=== PATIENT | female | born 1985 | race American Indian/Alaskan Native ===

== ENCOUNTER 2018-01-24 16:24 | Emergency (ER) | payer OTHER ==
[2018-01-24 16:33] VITALS: BP 128/88
[2018-01-24] MEDS ORDERED: REGLAN IV ONE (16:40)
[2018-01-24] MEDS ORDERED: NACL 0.9% 1000 ML 1,000 ML IV ONE (16:40)
[2018-01-24 16:56] LABS: Bilirubin,Urine NEG (Negative); Blood,Urine NEG (Negative); Color,Urine Yellow (Yellow); Protein,Urine <15 mg/dL mg/dL (Negative); Urobilinogen,Urine < 2.0 mg/dL (<2.0)
[2018-01-24 16:58] LABS: Hematocrit 40.2 % (30.3-42.9); Hemoglobin 13.8 gm/dl (10.1-14.3); Mean Corpuscular HGB Conc 34 % (30-34); Mean Corpuscular Hemoglobin 28 pg (28-32); Mean Corpuscular Volume 81 fl (79-97); Platelet Count 425 K/mm3 (140-440); Red Blood Count 4.99 M/mm3 (3.65-5.03); Red Cell Distribution Width 14.4 % (13.2-15.2)
[2018-01-24 17:19] LABS: BUN/Creatinine Ratio 14; Blood Urea Nitrogen 10 mg/dL (7-17); Hemolysis Index 14
--- NOTE | 2018-01-24 17:20 | Emergency Department Report ---
Vomiting/Diarrhea - HPI Chief Complaint: Nausea/Vomiting/Diarrhea Stated Complaint: VOMITING Time Seen by Provider: 01/24/18 16:35 Duration: 3 Days Severity: mild Nausea/Vomiting Severity: Mild Diarrhea Severity: None Pain Severity: None Other History: This is a 32-year-old female M1 nontoxic, well nourished in appearance, no acute signs of distress presents to the ED with c/o of nausea and vomiting x3 days. Patient stated that she is about 4-5 weeks . Patient stated last menstrual cycle was 12/12/2017. Patient denies any chest pain, shortness of breathe, fever, chills, headache, stiff neck, abdominal pain , back pain. Patient denies any vaginal discharge or vaginal bleeding. Patient denies any allergies or PMH. ED Review of Systems ROS: Stated complaint: VOMITING Other details as noted in HPI Constitutional: denies: chills, fever Eyes: denies: eye pain, eye discharge, vision change ENT: denies: ear pain, throat pain Respiratory: denies: cough, shortness of breath, wheezing Cardiovascular: denies: chest pain, palpitations Endocrine: no symptoms reported Gastrointestinal: nausea, vomiting. denies: abdominal pain, diarrhea Genitourinary: denies: urgency, dysuria, discharge Musculoskeletal: denies: back pain, joint swelling, arthralgia Skin: denies: rash, lesions Neurological: denies: headache, weakness, paresthesias Psychiatric: denies: anxiety, depression Hematological/Lymphatic: denies: easy bleeding, easy bruising ED Past Medical Hx - Past Medical History Previous Medical History?: No - Surgical History Additional Surgical History: - Social History Smoking Status: Never Smoker Substance Use Type: None - Medications Home Medications: Home Medications Medication Instructions Recorded Confirmed Last Taken Type Metoclopramide [Reglan] 10 mg PO TID PRN #60 tab 01/24/18 Unknown Rx Vomiting Diarrhea Exam - Exam General: Vital signs noted. No distress. Alert and acting appropriately. GENERAL: The patient is a well-developed, well-nourished in no apparent distress. Patient is alert and acting appropriately for age. Alert and oriented 3, no apparent distress, normal gait, atraumatic. HEENT: Head is normocephalic and atraumatic. PERRL, Extraocular muscles are intact. Pupils are equal, round, and reactive to light and accommodation. Nares appeared normal. Mouth is well hydrated and without lesions. Mucous membranes are moist. Posterior pharynx clear of any exudate or lesions. Mouth is well hydrated and without lesions. Tonsils not erythematous or swollen. Uvula midline. Tongue elevated. Mucous members are moist. Posterior pharynx clear, no exudate or lesions. Patent airways. NECK: Supple. No carotid bruits. No lymphadenopathy or thyromegaly.nontender. No meningitic signs are noted. LUNGS: Clear to auscultation. Non labor breathing. No intercostal retractions. Symmetrical with respiration, no wheezing, no rales, or crackles. HEART: Regular rate and rhythm without murmur, rubs or gallops. No reproducible. S1, S2 present, regular rate and rhythm without murmur, no rubs, no gallops. ABDOMEN: Soft, nontender, and nondistended. Positive bowel sounds. No hepatosplenomegaly was noted. No guarding or rebound tenderness, negative epigastric bruit. Negative psoas sign, negative jenkins sign, negative McBurneys sign EXTREMITIES: Without any cyanosis, clubbing, rash, lesions or edema. Peripheral pulses intact. Capillary refill less than 2 seconds. Full range of motion bilaterally. NEUROLOGIC: Cranial nerves II through XII are grossly intact. Alert and oriented x 3. Normal gait. Symmetrical strength and sensation. Reflexes 2+ throughout. Cerebellar testing normal. GCS score of 15. PSYCHIATRIC: Normal affect with no suicidal or homicidal ideations. HEENT: Yes Moist Mucous Membranes, No Pharyngeal Erythema, No Pharyngeal Exudates, No Rhinorrhea, No Conjuctival Injection, No Frontal Tenderness, No Maxillary Tenderness Neck: No Adenopathy, No Rigidity Lungs: Yes Clear Lung Sounds, Yes Good Air Exchange, No Wheezes, No Stridor, No Cough, No Nasal Flaring, No Retractions, No Use of Accessory Muscles Heart exam: Regular: Yes, Murmur: No, Tachycardia: No Abdomen: Tenderness: No, Peritoneal Signs: No, Distention: No, Hyperactive Bowel sounds: No Skin exam: Rash: No, Edema: No, Normal turgor: Yes Neurologic: Alert and oriented, no deficits. Musculoskeletal: Unremarkable. ED Course Vital Signs 01/24/18 16:30 Temperature 98.6 F Pulse Rate 92 H Respiratory 18 Rate Blood Pressure 128/88 O2 Sat by Pulse 100 Oximetry - Reevaluation(s) Reevaluation #1: 01/24/18 17:28 Patient is speaking in full sentences with no signs of distress noted. ED Medical Decision Making - Lab Data Result diagrams: 01/24/18 16:45 01/24/18 16:45 - Medical Decision Making This is a 32-year-old female that presents with hyperemesis . Patient is stable and was examined by me. There is no abdominal tenderness. Labs obtained with hypokalemia slight. EKG obtained with normal sinus rhythm and no st abnormalities. UA within normal limits. Patient received 1L of normal saline and reglan in the ED which patient stated that symptoms has resolved and subsided. Patient also received 40 and a Q of potassium. Patient is discharged with Reglan. Patient was instructed to increase hydration. A by mouth challenge has been obtained and patient tolerated well 23 apple juices with no nausea or vomiting noted. Patient is referred to Follow-up with a IRRIGATION TAX ASSESSOR COLLECTOR doctor in 3-5 days or if symptoms worsen and continue return to emergency room as soon as possible. At time of discharge, the patient does not seem toxic or ill in appearance. No acute signs of distress noted. Patient agrees to discharge treatment plan of care. No further questions noted by the patient. Critical care attestation.: If time is entered above; I have spent that time in minutes in the direct care of this critically ill patient, excluding procedure time. ED Disposition Clinical Impression: Hyperemesis gravidarum Disposition: DC-01 TO HOME OR SELFCARE Is pt being admited?: No Does the pt Need Aspirin: No Condition: Stable Instructions: Metoclopramide (By mouth), Hyperemesis Gravidarum (ED) Additional Instructions: Follow-up with a IRRIGATION TAX ASSESSOR COLLECTOR doctor in 3-5 days or if symptoms worsen and continue return to emergency room as soon as possible. Prescriptions: Metoclopramide [Reglan] 10 mg PO TID PRN #60 tab PRN Reason: Nausea Referrals: [facility] [Provider Group] - 3-5 Days [facility] [Outside] - 3-5 Days [facility] [Outside] - 3-5 Days CRICKET VAZQUEZ MD [Staff Physician] - 3-5 Days [facility] [Primary Care Provider] - 3-5 Days Forms: Work/School Release Form(ED)
[2018-01-24] MEDS ORDERED: K-DUR PO ONE (17:21)
== END 2018-01-24 18:50 | disposition home or self-care (01) ==
LOC: ED 16:24
DX: O21.0 Mild hyperemesis gravidarum (principal); Z3A.00 Weeks of gestation of pregnancy not specified
CPT/HCPCS: 36415; 80048; 81001; 84702; 85027; 93005; 93010; 96361; 96374; 99283; J2765; J7030

== ENCOUNTER 2018-02-13 13:14 | Emergency (ER) | payer OTHER ==
[2018-02-13 14:13] LABS: Basophils # (Auto) 0.1 K/mm3 (0.0-0.1); Basophils % (Auto) 1.3 % (0.0-1.8); Eosinophils % (Auto) 0.4 % (0.0-4.3); Hematocrit 35.5 % (30.3-42.9); Hemoglobin 12.4 gm/dl (10.1-14.3); Lymphocytes # (Auto) 1.7 K/mm3 (1.2-5.4); Lymphocytes % (Auto) 22.9 % (13.4-35.0); Mean Corpuscular HGB Conc 35 % (30-34); Mean Corpuscular Hemoglobin 28 pg (28-32); Mean Corpuscular Volume 80 fl (79-97); Monocytes # (Auto) 0.5 K/mm3 (0.0-0.8); Monocytes % (Auto) 7.4 % (0.0-7.3); Platelet Count 325 K/mm3 (140-440); Red Blood Count 4.43 M/mm3 (3.65-5.03); Red Cell Distribution Width 15.2 % (13.2-15.2)
[2018-02-13 14:32] LABS: Alanine Aminotransferase 29 units/L (7-56); Albumin 4.3 g/dL (3.9-5); BUN/Creatinine Ratio 16; Blood Urea Nitrogen 11 mg/dL (7-17); Hemolysis Index 4
[2018-02-13] MEDS ORDERED: ZOFRAN IV ONE (14:47)
[2018-02-13] MEDS ORDERED: K-DUR PO ONE ×2 (14:47→15:17)
--- NOTE | 2018-02-13 14:52 | Emergency Department Report ---
ED N/V/D HPI - General Chief complaint: Nausea/Vomiting/Diarrhea Stated complaint: NAUSEA/VOMITING Time Seen by Provider: 02/13/18 14:38 Source: patient, family Mode of arrival: Ambulatory Limitations: No Limitations - History of Present Illness Initial comments: 32-year-old female with a past medical history of previous presents to the hospital currently approximately 10 weeks with complaints of intractable nausea and vomiting 1 week. If this patient's second ER visit for the same during this and she is has similar issues with previous pregnancies. This is her fifth , she has 3 living children, history of one miscarriage. Positive intermittent, mild to moderate, and described that epigastric burning pain. She denies fever, melena, hematochezia, hematemesis, or diarrhea. She has been previously prescribed Zofran 8 mg was helped but she ran out of the medication and her doctor would not provide a refill with albuterol reevaluated. Last ultrasound was one week ago at 9 weeks gestation and performed in the office with normal IUP findings as per patient. 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 - Related Data Previous Rx's Medication Instructions Recorded Last Taken Type Metoclopramide [Reglan] 10 mg PO TID PRN #60 tab 01/24/18 Unknown Rx Famotidine [Pepcid] 20 mg PO BID #30 tablet 02/13/18 Unknown Rx Mag Hydrox/Aluminum Hyd/Simeth 20 ml PO QID PRN #1 bottle 02/13/18 Unknown Rx [Maalox Advanced Suspension] Ondansetron [Zofran ODT TAB] 8 mg PO Q8HR PRN #20 tab.rapdis 02/13/18 Unknown Rx Potassium Chloride [K-Dur] 20 meq PO BID #6 tab 02/13/18 Unknown Rx Allergies Allergy/AdvReac Type Severity Reaction Status Date / Time No Known Allergies Allergy Unverified 01/24/18 16:33 ED Review of Systems ROS: Stated complaint: NAUSEA/VOMITING Other details as noted in HPI Comment: All other systems reviewed and negative ED Past Medical Hx - Surgical History Additional Surgical History: - Social History Smoking Status: Never Smoker Substance Use Type: None - Medications Home Medications: Home Medications Medication Instructions Recorded Confirmed Last Taken Type Metoclopramide [Reglan] 10 mg PO TID PRN #60 tab 01/24/18 Unknown Rx Famotidine [Pepcid] 20 mg PO BID #30 tablet 02/13/18 Unknown Rx Mag Hydrox/Aluminum Hyd/Simeth 20 ml PO QID PRN #1 bottle 02/13/18 Unknown Rx [Maalox Advanced Suspension] Ondansetron [Zofran ODT TAB] 8 mg PO Q8HR PRN #20 tab.rapdis 02/13/18 Unknown Rx Potassium Chloride [K-Dur] 20 meq PO BID #6 tab 02/13/18 Unknown Rx ED Physical Exam - General Limitations: No Limitations - Other Other exam information: General: No limitations, patient is alert in no acute distress Head exam: Atraumatic, normocephalic Eyes exam: Normal appearance, nonicteric sclera ENT: Moist mucous membrane, normal oropharynx Neck exam: Normal inspection, full range of motion, no meningismus nontender Respiratory exam: Clear to auscultation bilateral, no wheezes, rales, crackles Cardiovascular: Normal rate and rhythm, normal heart sounds Abdomen: Soft, nondistended, mild epigastric tenderness, with normal bowel sounds, no rebound, or guarding Extremity: Full range of motion normal inspection no deformity Back: Normal Inspection, full range of motion, no tenderness Neurologic: Alert, oriented x3, cranial nerves intact, no motor or sensory deficit Psychiatric: normal affect, normal mood Skin: Warm, dry, intact ED Course Vital Signs 02/13/18 02/13/18 13:27 20:03 Temperature 98.5 F Pulse Rate 99 H 88 Respiratory 16 18 Rate Blood Pressure 113/76 Blood Pressure 116/77 [Right] O2 Sat by Pulse 99 99 Oximetry - Consultations Consultation #1: 02/13/18 18:18 case d/w Dr Virk with [facility], if sx improved agree with d/c and f/u on thursday (2 days) ED Medical Decision Making - Lab Data Result diagrams: 02/13/18 13:47 02/13/18 13:47 - Medical Decision Making Patient's dizziness improved with IV hydration. No vomiting after Zofran. Patient having belching with by mouth intake and therefore given Maalox. We discharged on medications for symptoms and hyperkalemia. Case discussed with RAW MILL OPERATOR. Follow-up on Thursday recommended. - Differential Diagnosis pancreatitis, hyperemesis, UTI, gastritis Critical Care Time: No Critical care attestation.: If time is entered above; I have spent that time in minutes in the direct care of this critically ill patient, excluding procedure time. ED Disposition Clinical Impression: Hyperemesis gravidarum, Hypokalemia, GERD (gastroesophageal reflux disease) Disposition: TO HOME OR SELFCARE Is pt being admited?: No Does the pt Need Aspirin: No Condition: Stable Instructions: Hyperemesis Gravidarum (ED), Hypokalemia (ED) Additional Instructions: Take the medications as prescribed. Follow-up with a RAW MILL OPERATOR doctor on Thursday the . Return if symptoms worsen as indicated by a discharge instructions Prescriptions: Famotidine [Pepcid] 20 mg PO BID #30 tablet Mag Hydrox/Aluminum Hyd/Simeth [Maalox Advanced Suspension] 20 ml PO QID PRN #1 bottle PRN Reason: Indigestion Ondansetron [Zofran ODT TAB] 8 mg PO Q8HR PRN #20 tab.rapdis PRN Reason: Nausea And Vomiting Potassium Chloride [K-Dur] 20 meq PO BID #6 tab Referrals: LACEY VIRK MD [Staff Physician] - 02/15/18 Time of Disposition: 20:00
[2018-02-13] MEDS ORDERED: D5NS 1,000 ML IV SCH ×3 (15:00→16:00)
[2018-02-13] MEDS ORDERED: ZOFRAN ONE (15:14)
[2018-02-13] MEDS ORDERED: D5W 1,000 ML IV ONE (15:18)
[2018-02-13 17:33] LABS: Bilirubin,Urine NEG (Negative); Blood,Urine NEG (Negative); Color,Urine Yellow (Yellow); Protein,Urine <15 mg/dL mg/dL (Negative); Urobilinogen,Urine < 2.0 mg/dL (<2.0)
[2018-02-13] MEDS ORDERED: D5NS 1,000 ML IV ONE ×2 (18:07→19:00)
[2018-02-13] MEDS ORDERED: ALUM-MAG HYDROX-SIMETH 200-200-20MG/5ML PO ONE (18:26)
[2018-02-13 20:04] VITALS: BP 116/77
== END 2018-02-13 20:04 | disposition home or self-care (01) ==
LOC: ED 13:14
DX: O21.0 Mild hyperemesis gravidarum (principal); K21.9 Gastro-esophageal reflux disease without esophagitis; E87.6 Hypokalemia; Z3A.10 10 weeks gestation of pregnancy
CPT/HCPCS: 36415; 80053; 81001; 83690; 83735; 85025; 96361; 96374; 99283; J2405; J7042; J7070

== ENCOUNTER 2018-02-20 16:43 | Emergency (ER) | payer OTHER ==
[2018-02-20] MEDS ORDERED: LACTATED RINGERS 1,000 ML IV ONE (23:40)
--- NOTE | 2018-02-20 23:40 | Emergency Department Report ---
ED General Adult HPI - General Chief complaint: Nausea/Vomiting/Diarrhea Stated complaint: CANNOT EAT/DRINK/10 WEEKS Time Seen by Provider: 02/20/18 23:33 Source: patient Mode of arrival: Ambulatory Limitations: No Limitations - History of Present Illness Initial comments: Approximately 10 weeks EGA patient states history of hyperemesis was seen on the this facility was given Zofran to continue her regular she is here with intractable nausea vomiting she is not having diarrhea is not having vaginal bleeding or abdominal pain. [place] IUP at 9 weeks -: Gradual Radiation: non-radiation Severity scale (0 -10): 0 Associated Symptoms: denies other symptoms, nausea/vomiting. denies: confusion , chest pain, cough, diaphoresis, fever/chills, headaches, loss of appetite, malaise, rash, seizure, shortness of breath, syncope, weakness - Related Data Previous Rx's Medication Instructions Recorded Last Taken Type Famotidine [Pepcid] 20 mg PO BID #30 tablet 02/13/18 Unknown Rx Mag Hydrox/Aluminum Hyd/Simeth 20 ml PO QID PRN #1 bottle 02/13/18 Unknown Rx [Maalox Advanced Suspension] Ondansetron [Zofran ODT TAB] 8 mg PO Q8HR PRN #20 tab.rapdis 02/13/18 Unknown Rx Potassium Chloride [K-Dur] 20 meq PO BID #6 tab 02/13/18 Unknown Rx Metoclopramide [Reglan TAB] 10 mg PO TID PRN #60 tab 02/21/18 Unknown Rx Allergies Allergy/AdvReac Type Severity Reaction Status Date / Time No Known Allergies Allergy Unverified 01/24/18 16:33 ED Review of Systems ROS: Stated complaint: CANNOT EAT/DRINK/10 WEEKS Other details as noted in HPI Comment: All other systems reviewed and negative Constitutional: denies: diaphoresis, fever, malaise Eyes: denies: eye discharge, vision change ENT: denies: dental pain, hearing loss, epistaxis Respiratory: denies: shortness of breath, SOB with exertion, SOB at rest, stridor Cardiovascular: denies: chest pain, palpitations, dyspnea on exertion, orthopnea , edema, syncope, paroxysmal nocturnal dyspnea Gastrointestinal: nausea, vomiting. denies: abdominal pain, diarrhea, constipation, hematemesis, melena, hematochezia Genitourinary: denies: urgency, dysuria Musculoskeletal: denies: back pain, joint swelling, arthralgia Neurological: denies: headache, weakness, numbness, paresthesias, confusion ED Past Medical Hx - Past Medical History Previous Medical History?: No - Surgical History Additional Surgical History: - Social History Smoking Status: Never Smoker Substance Use Type: None - Medications Home Medications: Home Medications Medication Instructions Recorded Confirmed Last Taken Type Famotidine [Pepcid] 20 mg PO BID #30 tablet 02/13/18 Unknown Rx Mag Hydrox/Aluminum Hyd/Simeth 20 ml PO QID PRN #1 bottle 02/13/18 Unknown Rx [Maalox Advanced Suspension] Ondansetron [Zofran ODT TAB] 8 mg PO Q8HR PRN #20 tab.rapdis 02/13/18 Unknown Rx Potassium Chloride [K-Dur] 20 meq PO BID #6 tab 02/13/18 Unknown Rx Metoclopramide [Reglan TAB] 10 mg PO TID PRN #60 tab 02/21/18 Unknown Rx ED Physical Exam - General Limitations: No Limitations General appearance: alert, in no apparent distress - Head Head exam: Present: atraumatic, normocephalic - Eye Eye exam: Present: PERRL, EOMI - ENT ENT exam: Present: normal exam, normal orophraynx - Neck Neck exam: Present: normal inspection. Absent: tenderness, meningismus - Respiratory Respiratory exam: Present: normal lung sounds bilaterally. Absent: respiratory distress, wheezes, rales, rhonchi, stridor - Cardiovascular Cardiovascular Exam: Present: regular rate, normal rhythm - GI/Abdominal GI/Abdominal exam: Present: soft. Absent: distended, tenderness, guarding, rebound, rigid, organomegaly, pulsatile mass - Extremities Exam Extremities exam: Present: normal inspection, normal capillary refill. Absent: pedal edema, joint swelling, calf tenderness - Back Exam Back exam: Present: normal inspection. Absent: CVA tenderness (L), muscle spasm , paraspinal tenderness, vertebral tenderness - Neurological Exam Neurological exam: Present: alert, oriented X3, CN II-XII intact. Absent: motor sensory deficit ED Course Vital Signs 02/20/18 02/21/18 02/21/18 16:47 01:02 01:05 Temperature 97.7 F 98.4 F Pulse Rate 82 95 H Respiratory 16 20 20 Rate Blood Pressure 112/69 Blood Pressure 107/65 [Right] O2 Sat by Pulse 98 98 100 Oximetry ED Medical Decision Making - Lab Data Result diagrams: 02/20/18 23:45 02/20/18 23:45 - Medical Decision Making Patient has no acute abdomen tolerating by mouth laboratory studies do show dehydration negative ketones stable for outpatient follow-up vital signs stable Critical care attestation.: If time is entered above; I have spent that time in minutes in the direct care of this critically ill patient, excluding procedure time. ED Disposition Clinical Impression: Hyperemesis gravidarum Disposition: DC-01 TO HOME OR SELFCARE Is pt being admited?: No Condition: Stable Instructions: Hyperemesis Gravidarum (ED) Additional Instructions: Return immediately if new or alarming symptoms such as worsening or persistent symptoms or call 911 see the doctor listed her regular doctor in 2 days Prescriptions: Metoclopramide [Reglan TAB] 10 mg PO TID PRN #60 tab PRN Reason: Nausea Referrals: PRIMARY MD BRANDON [Primary Care Provider] - 3-5 Days YESSY KEENAN MD [Staff Physician] - 3-5 Days Time of Disposition: 02:22
[2018-02-20] MEDS ORDERED: ZOFRAN IV ONE (23:41)
[2018-02-20] MEDS ORDERED: REGLAN IV ONE (23:41)
[2018-02-21 00:09] LABS: Basophils % (Auto) 0.5 % (0.0-1.8); Eosinophils % (Auto) 0.3 % (0.0-4.3); Hematocrit 37.7 % (30.3-42.9); Hemoglobin 12.8 gm/dl (10.1-14.3); Lymphocytes # (Auto) 1.8 K/mm3 (1.2-5.4); Mean Corpuscular HGB Conc 34 % (30-34); Mean Corpuscular Hemoglobin 27 pg (28-32); Mean Corpuscular Volume 80 fl (79-97); Monocytes # (Auto) 0.6 K/mm3 (0.0-0.8); Monocytes % (Auto) 8.3 % (0.0-7.3); Platelet Count 281 K/mm3 (140-440); Red Cell Distribution Width 14.8 % (13.2-15.2)
[2018-02-21 00:27] LABS: Alanine Aminotransferase 49 units/L (7-56); Albumin 4.5 g/dL (3.9-5); BUN/Creatinine Ratio 13; Blood Urea Nitrogen 9 mg/dL (7-17); Calcium 10.3 mg/dL (8.4-10.2); Hemolysis Index 0
[2018-02-21 01:03] VITALS: BP 107/65
== END 2018-02-21 02:22 | disposition home or self-care (01) ==
LOC: ED 16:43
DX: O21.0 Mild hyperemesis gravidarum (principal); Z3A.10 10 weeks gestation of pregnancy
CPT/HCPCS: 36415; 80053; 82010; 85025; 96361; 96374; 96375; 99283; J2405; J2765; J7120

== ENCOUNTER 2018-02-23 11:33 | Inpatient (IN) | payer OTHER ==
--- NOTE | 2018-02-23 12:11 | History and Physical Report ---
History of Present Illness Date of examination: 02/23/18 Date of admission: 02/23/18 11:51 Chief complaint: Nausea & Vomiting History of present illness: 32 yo AA Fe , LMO 12/11/2017, AMINAH 09/17/2018 10 weeks 4 days gestation sent from [facility] office for direct admit for Hyperemesis. Pt seen in office this morning with intractable nausea vomiting. She has been seen at [facility] ER x 2 for IVF on 02/12 and 02/20. Pt has lost 17 lbs in 4 weeks and reports she is unable to keep anything down (food, water, medications), suffers from dizziness with standing, and extreme fatigue. Office UA Dip SG. 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 denies: smoking, alcohol abuse, prescription drug abuse, IV drug use - Obstetrical History Expected Date of Delivery: 09/17/18 Actual Gestation: 10 Week(s) 4 Day(s) : 5 Para: 3 Hx # Term Pregnancies: 3 Number of Pregnancies: 0 Spontaneous Abortions: 1 Induced : 0 Number of Living Children: 3 Medications and Allergies Allergies Allergy/AdvReac Type Severity Reaction Status Date / Time No Known Allergies Allergy Unverified 01/24/18 16:33 Home Medications Medication Instructions Recorded Confirmed Last Taken Type Famotidine [Pepcid] 20 mg PO BID #30 tablet 02/13/18 Unknown Rx Mag Hydrox/Aluminum Hyd/Simeth 20 ml PO QID PRN #1 bottle 02/13/18 Unknown Rx [Maalox Advanced Suspension] Ondansetron [Zofran ODT TAB] 8 mg PO Q8HR PRN #20 tab.rapdis 02/13/18 Unknown Rx Potassium Chloride [K-Dur] 20 meq PO BID #6 tab 02/13/18 Unknown Rx Metoclopramide [Reglan TAB] 10 mg PO TID PRN #60 tab 02/21/18 Unknown Rx Active Meds: Active Medications Dextrose/Lactated Ringer's (D5lr) 1,000 mls @ 500 mls/hr IV DIRECT MISTI Stop: 02/24/18 13:59 Dextrose/Lactated Ringer's (D5lr) 1,000 mls @ 150 mls/hr IV DIRECT MISTI Metoclopramide HCl (Reglan) 10 mg IV Q6H MISTI Multivitamins/Iron/Calcium ( Vitamin) 1 each PO QDAY MISTI Ondansetron HCl (Zofran) 4 mg IV Q6H PRN PRN Reason: N/V unrelieved by Reglan Review of Systems Constitutional: weight loss, fatigue, weakness Respiratory: no cough, no shortness of breath Gastrointestinal: nausea, vomiting, loss of appetite, no diarrhea Genitourinary: no vaginal bleeding, no vaginal discharge, no pelvic pain, no genital sores Endocrine: weight change, fatigue - Physical Exam Cardiovascular: Regular rate, Normal S1, Normal S2 Lungs: Positive: Clear to auscultation, Normal air movement Abdomen: Positive: normal appearance, soft. Negative: distention Genitourinary (Female): Positive: normal external genitalia, normal perenium Results All other labs normal. Assessment and Plan A: IUP at 10w4d Hyperemesis Gravidum P: Direct admit Hyperemesis orders plan to initiate zofran pump
[2018-02-23] MEDS: D5LR 1,000 ML IV SCH ×3 (12:40→16:50)
[2018-02-23] MEDS: REGLAN IV SCH ×3 (12:45→23:47)
[2018-02-23 13:21] LABS: Bacteria,Urine 1+ /HPF (Negative); Bilirubin,Urine NEG (Negative); Blood,Urine NEG (Negative); Color,Urine Yellow (Yellow); Protein,Urine <15 mg/dL mg/dL (Negative); Urobilinogen,Urine < 2.0 mg/dL (<2.0)
[2018-02-23 16:45] LABS: BUN/Creatinine Ratio 11; Blood Urea Nitrogen 8 mg/dL (7-17); Calcium 9.6 mg/dL (8.4-10.2); Hemolysis Index 0
[2018-02-23 17:45] LABS: Lipase 187 units/L (13-60)
[2018-02-23] MEDS: KCL 10MEQ/100ML 10 MEQ/100 ML BAG IV SCH ×3 (19:24→22:04)
[2018-02-24] MEDS: D5LR 1,000 ML IV SCH ×3 (01:35→17:48)
[2018-02-24] MEDS: REGLAN IV SCH ×2 (05:13→13:10)
--- NOTE | 2018-02-24 09:21 | Progress Note ---
Assessment and Plan - Patient Problems (1) 11 weeks gestation of Current Visit: Yes Status: Acute (2) Hyperemesis Current Visit: Yes Status: Acute Plan to address problem: Continue IV fluid. Advance to clear diet today. I told pt that she will need optum service after discharge. (3) Hypokalemia Current Visit: Yes Status: Acute Plan to address problem: K+ level is 2.9 this AM after 3 K-riders. Will repeat level and confirm this result before giving her more potassium. Subjective - Subjective Date of service: 02/24/18 Principal diagnosis: Hyperemesis at 11 weeks. Interval history: Patient is at 11 weeks gestation. She was admitted yesterday for intractable nausea and vomiting despite taking zofran, diclegis, reglan PO for the past 2 weeks. She had a 17-lb weight loss. She has been on IV reglan and IVF. Her potassium was low at 2.8, she was given K-rider. This AM, she feels better. Objective - Vital Signs Vital Signs: Vital Signs - 12hr 02/23/18 02/24/18 23:41 05:10 Temperature 98.9 F 98.0 F Pulse Rate 88 95 H Respiratory 18 18 Rate Blood Pressure 114/73 94/57 [Left] - Exam Cardiovascular: Normal S1, Normal S2 Lungs: Clear to auscultation Vulva: both: normal Uterine Contraction Pattern: Absent Deep Tendon Reflex Grade: Normal +2 - Labs Labs: Abnormal Labs 02/23/18 02/23/18 02/24/18 15:19 15:19 07:52 Potassium 2.8 L* 2.9 L* Carbon Dioxide 20 L Glucose 269 H Amylase 298 H Lipase 187 H Laboratory Results - last 24 hr 02/23/18 02/23/18 02/23/18 11:24 15:19 15:19 Sodium 139 Potassium 2.8 L* Chloride 102.2 Carbon Dioxide 20 L Anion Gap 20 BUN 8 Creatinine 0.7 Estimated GFR > 60 BUN/Creatinine Ratio 11 Glucose 269 H Calcium 9.6 Amylase 298 H Lipase 187 H Urine Color Yellow Urine Turbidity Clear Urine pH 6.0 Ur Specific [place] 1.009 Urine Protein <15 mg/dl Urine Glucose (UA) Neg Urine Ketones 80 Urine Blood Neg Urine Nitrite Neg Urine Bilirubin Neg Urine Urobilinogen < 2.0 Ur Leukocyte Esterase Neg Urine WBC (Auto) 2.0 Urine RBC (Auto) 2.0 U Epithel Cells (Auto) 1.0 Urine Bacteria (Auto) 1+ 02/24/18 02/24/18 00:00 07:52 Sodium Potassium 2.9 L* Chloride Carbon Dioxide Anion Gap BUN Creatinine Estimated GFR BUN/Creatinine Ratio Glucose Calcium Amylase Lipase Urine Color Urine Turbidity Urine pH Ur Specific [place] Urine Protein Urine Glucose (UA) Urine Ketones Tr Urine Blood Urine Nitrite Urine Bilirubin Urine Urobilinogen Ur Leukocyte Esterase Urine WBC (Auto) Urine RBC (Auto) U Epithel Cells (Auto) Urine Bacteria (Auto)
[2018-02-24] MEDS ORDERED: PRENATAL VITAMIN PO SCH (10:00)
[2018-02-24] MEDS: ZOFRAN IV PRN (10:07)
[2018-02-24 10:13] LABS: Hematocrit 27.3 % (30.3-42.9); Hemoglobin 9.7 gm/dl (10.1-14.3); Mean Corpuscular HGB Conc 36 % (30-34); Mean Corpuscular Hemoglobin 28 pg (28-32); Mean Corpuscular Volume 80 fl (79-97); Platelet Count 197 K/mm3 (140-440); Red Blood Count 3.43 M/mm3 (3.65-5.03); Red Cell Distribution Width 15.3 % (13.2-15.2)
[2018-02-24 10:23] LABS: Alanine Aminotransferase 67 units/L (7-56); Lipase 169 units/L (13-60)
[2018-02-24] MEDS ORDERED: TYLENOL PO NR (10:30)
[2018-02-24] MEDS: KCL 10MEQ/100ML 10 MEQ/100 ML BAG IV SCH ×2 (17:47→19:43)
[2018-02-25] MEDS: REGLAN IV SCH ×4 (00:15→18:17)
[2018-02-25] MEDS: D5LR 1,000 ML IV SCH ×2 (02:53→16:37)
--- NOTE | 2018-02-25 10:07 | Progress Note ---
Assessment and Plan - Patient Problems (1) 11 weeks gestation of Current Visit: Yes Status: Acute (2) Hyperemesis Current Visit: Yes Status: Acute Plan to address problem: Continue IV fluid. Discharge home today. I told pt that optum service will be arranged for her after discharge. (3) Hypokalemia Current Visit: Yes Status: Acute Plan to address problem: Will repeat Chem this AM before discharge. (4) Hyperthyroidism affecting Current Visit: Yes Status: Acute Plan to address problem: Will repeat TSH/free T4 on thursday. If free T4 still elevated, will start PTU. Subjective - Subjective Date of service: 02/25/18 Principal diagnosis: Hyperemesis at 11 weeks. Interval history: Patient is at 11 weeks gestation. She was admitted 2 days ago for intractable nausea and vomiting despite taking zofran, diclegis, reglan PO for the past 2 weeks. She had a 17-lb weight loss. She has been on IV reglan and IVF. Her potassium was low at 2.8, she was given K-rider. Last level was 3.1. This AM, she feels better. She is tolerating regular diet. Objective - Vital Signs Vital Signs: Vital Signs - 12hr 02/24/18 02/25/18 02/25/18 23:28 05:15 08:50 Temperature 98.1 F 98.5 F 98.3 F Pulse Rate 78 85 75 Respiratory 16 16 18 Rate Blood Pressure 104/66 104/66 110/56 [Left] - Exam Cardiovascular: Normal S1, Normal S2 Lungs: Clear to auscultation Vulva: both: normal - Labs Labs: Abnormal Labs 02/23/18 02/23/18 02/24/18 15:19 15:19 07:52 RBC Hgb Hct MCHC RDW Potassium 2.8 L* 2.9 L* Carbon Dioxide 20 L Glucose 269 H ALT Amylase 298 H Lipase 187 H TSH Free T4 02/24/18 02/24/18 02/24/18 09:35 09:35 09:35 RBC 3.43 L Hgb 9.7 L Hct 27.3 L MCHC 36 H RDW 15.3 H Potassium Carbon Dioxide Glucose ALT 67 H Amylase 250 H Lipase 169 H TSH Free T4 2.03 H 02/24/18 02/24/18 09:35 13:17 RBC Hgb Hct MCHC RDW Potassium 3.1 L Carbon Dioxide Glucose ALT Amylase Lipase TSH 0.010 L Free T4 Laboratory Results - last 24 hr 02/24/18 02/24/18 02/24/18 09:35 09:35 09:35 WBC 6.4 RBC 3.43 L Hgb 9.7 L Hct 27.3 L MCV 80 MCH 28 MCHC 36 H RDW 15.3 H Plt Count 197 Potassium AST 35 ALT 67 H Amylase 250 H Lipase 169 H TSH Free T4 Urine Ketones 02/24/18 02/24/18 02/24/18 09:35 09:35 13:17 WBC RBC Hgb Hct MCV MCH MCHC RDW Plt Count Potassium 3.1 L AST ALT Amylase Lipase TSH 0.010 L Free T4 2.03 H Urine Ketones 02/24/18 14:10 WBC RBC Hgb Hct MCV MCH MCHC RDW Plt Count Potassium AST ALT Amylase Lipase TSH Free T4 Urine Ketones Neg
[2018-02-25 10:59] LABS: Alanine Aminotransferase 144 units/L (7-56); Albumin 3.2 g/dL (3.9-5); BUN/Creatinine Ratio 4; Blood Urea Nitrogen 2 mg/dL (7-17); Calcium 9.5 mg/dL (8.4-10.2); Hemolysis Index 1
[2018-02-25] MEDS: KCL 10MEQ/100ML 10 MEQ/100 ML BAG IV SCH ×4 (16:39→22:43)
[2018-02-26] MEDS: REGLAN IV SCH ×3 (00:31→12:44)
[2018-02-26] MEDS: D5LR 1,000 ML IV SCH (04:11)
--- NOTE | 2018-02-26 08:29 | Progress Note ---
Assessment and Plan A: N/V of prefgnancy -Doing well P: -Await repeat serum K -Will most likely discharge home at this time -Patient to follow up as previously arranged by Dr. Duckworth - Patient Problems (1) 11 weeks gestation of Current Visit: Yes Status: Acute (2) Hyperemesis Current Visit: Yes Status: Acute Subjective - Subjective Date of service: 02/26/18 Principal diagnosis: Hyperemesis at 11 weeks. Interval history: Patient seen and examined, stable. Denies nausea vomiting at this time, tolerating oral intake Patient reports: new complaints Objective - Vital Signs Vital Signs: Vital Signs - 12hr 02/25/18 02/26/18 02/26/18 20:40 01:35 06:50 Temperature 98.4 F 98.3 F 98.5 F Pulse Rate 83 83 98 H Respiratory 16 16 16 Rate Blood Pressure 105/66 116/75 99/56 [Left] - Exam Abdomen: Present: normal appearance, soft. Absent: distention, tenderness, guarding, rigidity - Labs Labs: Abnormal Labs 02/23/18 02/23/18 02/24/18 15:19 15:19 07:52 RBC Hgb Hct MCHC RDW Potassium 2.8 L* 2.9 L* Carbon Dioxide 20 L BUN Creatinine Glucose 269 H AST ALT Albumin Amylase 298 H Lipase 187 H TSH Free T4 02/24/18 02/24/18 02/24/18 09:35 09:35 09:35 RBC 3.43 L Hgb 9.7 L Hct 27.3 L MCHC 36 H RDW 15.3 H Potassium Carbon Dioxide BUN Creatinine Glucose AST ALT 67 H Albumin Amylase 250 H Lipase 169 H TSH Free T4 2.03 H 02/24/18 02/24/18 02/25/18 09:35 13:17 10:18 RBC Hgb Hct MCHC RDW Potassium 3.1 L 2.9 L* Carbon Dioxide BUN 2 L Creatinine 0.5 L Glucose 109 H AST 104 H ALT 144 H Albumin 3.2 L Amylase Lipase TSH 0.010 L Free T4 Laboratory Results - last 24 hr 02/25/18 02/26/18 10:18 00:40 Sodium 142 Potassium 2.9 L* Chloride 105.9 Carbon Dioxide 25 Anion Gap 14 BUN 2 L Creatinine 0.5 L Estimated GFR > 60 BUN/Creatinine Ratio 4 Glucose 109 H Calcium 9.5 Total Bilirubin 1.20 AST 104 H ALT 144 H Alkaline Phosphatase 81 Total Protein 6.6 D Albumin 3.2 L Albumin/Globulin Ratio 0.9 Urine Ketones Neg
--- NOTE | 2018-02-26 08:34 | Discharge Summary ---
Providers - Providers Date of Admission: 02/23/18 11:51 Date of discharge: 02/26/18 Attending physician: RO VIGIL 02/23/18 12:00 Consult to Dietitian/Nutrition [CONS] Routine Physician Instructions: Reason For Exam: Reason for Consult: hyper grav Reason for Consult: Poor oral intake Primary care physician: RO VIGIL Hospitalization Reason for admission: observation (nausea vomiting of at ~ 11 weeks) Discharge diagnosis: other (nausea vomiting of at ~ 11 weeks) Hospital course: 32 yo AA Fe , LMO 12/11/2017, AMINAH 09/17/2018 10 weeks 4 days gestation sent from [facility] office for direct admit for Hyperemesis. She was admitted to the floor. Her electrolytes were corrected, she was started on [id number]. Her condition improved Condition at discharge: Good Disposition: DC-01 TO HOME OR SELFCARE - Discharge Diagnoses (1) 11 weeks gestation of Status: Acute (2) Hyperemesis Status: Acute Plan - Provider Discharge Summary Activity: no sex for 6 weeks, no heavy lifting 4 weeks, no strenuous exercise Diet: other (as per nutrition consult) Additional instructions: [] Smoking cessation referral if applicable(refer to patient education folder for contact #) [] Refer to [facility] Booklet Call your doctor immediately for: * Fever > 100.5 * Heavy vaginal bleeding ( >1 pad per hour) * Severe persistent headache * Shortness of breath * Reddened, hot, painful area to leg or breast * Drainage or odor from incision. * Keep incision clean and dry at all times and follow doctor's instructions regarding bathing/showering - Follow up plan Follow up: RITU PEARSON MD [Staff Physician] - 7 Days
[2018-02-26] MEDS ORDERED: D5LR W/KCL 20 MEQ 20 MEQ/1,000 ML BAG IV SCH (09:00)
[2018-02-26 09:28] VITALS: BP 95/54
[2018-02-26] MEDS: K-DUR PO SCH ×2 (09:41→15:15)
--- NOTE | 2018-02-26 09:52 | Event Note ---
Date: 02/26/18 Repeat K reported this AM a 2.8. Plan is oral KCL 40 meq which was administered at ~ 09:00 with repeat at ~3:00 PM. Will also administer 20 meq IV now. Repeat serum K in the PM.
[2018-02-26] MEDS: ZOFRAN IV PRN (10:43)
[2018-02-26] MEDS ORDERED: K-DUR PO ONE (17:29)
== END 2018-02-26 18:50 | disposition home or self-care (01) | DRG 781 ==
LOC: 3A 11:33 → UNDOADMIN 11:33 → OB 11:51
PROVIDERS: ADMIT Obstetrics & Gynecology Gynecology; ATTEND Obstetrics & Gynecology Gynecology
DX: O21.1 Hyperemesis gravidarum with metabolic disturbance (principal); O99.281 Endocrine, nutritional and metabolic diseases complicating pregnancy, first trimester; O34.219 Maternal care for unspecified type scar from previous cesarean delivery; Z3A.11 11 weeks gestation of pregnancy; E05.90 Thyrotoxicosis, unspecified without thyrotoxic crisis or storm
CPT/HCPCS: 36415; 80048; 80053; 81001; 82010; 82150; 83690; 84132; 84439; 84443; 84450; 84460; 85027; J2405; J2765; J3480; J7120; J7121

== ENCOUNTER 2018-03-01 12:09 | Inpatient (IN) | payer OTHER ==
[2018-03-01] MEDS: D5LR 1,000 ML IV SCH ×4 (13:35→19:02)
--- NOTE | 2018-03-01 13:42 | History and Physical Report ---
History of Present Illness Date of examination: 03/01/18 Date of admission: 03/01/18 12:37 Chief complaint: Persistent nausea and vomiting History of present illness: Pt is a 32 yo BF , LMP 12/11/2017, AMINAH 09/17/2018 EGA 11 weeks 3 days gestation sent from [facility] office for direct admit due to recurrent Hyperemesis. She was recently discharged from [facility] for hyperemesis 02/26/18. Past History Past Medical History: no pertinent history Past Surgical History: section Family/Genetic History: diabetes, hypertension Social history: no significant social history, single - Obstetrical History Expected Date of Delivery: 09/17/18 Actual Gestation: 11 Week(s) 4 Day(s) : 5 Medications and Allergies Allergies Allergy/AdvReac Type Severity Reaction Status Date / Time No Known Allergies Allergy Unverified 01/24/18 16:33 Home Medications Medication Instructions Recorded Confirmed Last Taken Type Famotidine [Pepcid] 20 mg PO BID #30 tablet 02/13/18 03/02/18 03/01/18 11:00 Rx Mag Hydrox/Aluminum Hyd/Simeth 20 ml PO QID PRN #1 bottle 02/13/18 03/02/1801/13 11:00 Rx [Maalox Advanced Suspension] Ondansetron [Zofran ODT TAB] 8 mg PO Q8HR PRN #20 tab.rapdis 02/13/18 03/02/18 03/01/18 11:00 Rx Potassium Chloride [K-Dur] 20 meq PO BID #6 tab 02/13/18 03/02/18 03/01/18 11: 00 Rx Metoclopramide [Reglan TAB] 10 mg PO TID PRN #60 tab 02/21/18 03/02/18 03/01/18 11:00 Rx Famotidine [Pepcid] 20 mg PO BID #60 tablet 03/02/18 Unknown Rx Ondansetron [Zofran ODT TAB] 8 mg PO Q8HR #90 tab.rapdis 03/02/18 Unknown Rx Active Meds: Active Medications Dextrose/Lactated Ringer's (D5lr) 1,000 mls @ 500 mls/hr IV DIRECT MISTI Stop: 03/02/18 15:59 Dextrose/Lactated Ringer's (D5lr) 1,000 mls @ 150 mls/hr IV DIRECT MISTI Metoclopramide HCl (Reglan) 10 mg IV Q6H MISTI Multivitamins/Iron/Calcium ( Vitamin) 1 each PO QDAY MISTI Ondansetron HCl (Zofran) 4 mg IV Q6H PRN PRN Reason: N/V unrelieved by Reglan Promethazine HCl (Phenergan) 25 mg WA Q6H MISTI Review of Systems All systems: negative - Vital Signs Vital signs: Vital Signs Temp Pulse Resp BP 98.6 F 88 20 128/76 03/01/18 13:00 03/01/18 13:00 03/01/18 13:00 03/01/18 13:00 Temp Pulse Resp BP Pulse Ox 98.6 F 88 20 128/76 03/01/18 13:00 03/01/18 13:00 03/01/18 13:18 03/01/18 13:00 - Physical Exam Cardiovascular: Regular rate Lungs: Positive: Clear to auscultation Abdomen: Positive: normal appearance, soft Uterus: Positive: enlarged Results Result Diagrams: 03/02/18 04:02 All other labs normal. Assessment and Plan - Patient Problems (1) 11 weeks gestation of Onset Date: 03/01/18 Current Visit: No Status: Acute Plan to address problem: A: IUP @ 11 3/7 weeks Recurrent hyperemesis P: Admit for Observation and IV hydration, IV antiemetics Obtain CBC, CMP and urinalysis (2) Hyperemesis Onset Date: 03/01/18 Current Visit: No Status: Acute
[2018-03-01] MEDS: PHENERGAN PR SCH (13:45)
[2018-03-01] MEDS ORDERED: ZOFRAN IV PRN (14:00)
[2018-03-01] MEDS: REGLAN IV SCH ×2 (14:17→21:13)
[2018-03-01 15:09] LABS: Bacteria,Urine 1+ /HPF (Negative); Bilirubin,Urine NEG (Negative); Blood,Urine SM (Negative); Color,Urine Yellow (Yellow); Protein,Urine <15 mg/dL mg/dL (Negative); Urobilinogen,Urine < 2.0 mg/dL (<2.0); WBC,Urine < 1.0 /HPF (0.0-6.0)
[2018-03-01 16:00] LABS: BUN/Creatinine Ratio 12; Blood Urea Nitrogen 7 mg/dL (7-17); Calcium 8.8 mg/dL (8.4-10.2); Hemolysis Index 6
[2018-03-01] MEDS: K-DUR PO PRN ×2 (19:00→21:13)
[2018-03-02] MEDS: REGLAN IV SCH (02:16)
[2018-03-02] MEDS: D5LR 1,000 ML IV SCH (02:16)
[2018-03-02] MEDS: PHENERGAN PR SCH ×2 (02:20→03:09)
[2018-03-02] MEDS ORDERED: K-DUR PO ONE ×2 (05:32→08:00)
--- NOTE | 2018-03-02 08:12 | Progress Note ---
Assessment and Plan A: 32 yo BF at 11+4 wks with nausea vomiting of -Has had no episode of vomiting since admission last night P: -Will discontinue all IV fluids and drugs -Start oral medications in Prep for D/C -Disposition after period of observation - Patient Problems (1) 11 weeks gestation of Current Visit: No Status: Acute (2) Nausea/vomiting in Current Visit: Yes Status: Acute Subjective - Subjective Date of service: 03/02/18 Principal diagnosis: IUP @ 11+4 wks, N/V of preg Interval history: Patient seen and examined, stable doing well. She has had no vomiting since admission last night. She claims she has been eating a BRAT diet at home, no other behavior out of the ordinary. She also claims she has been taking her medication as prescribed. Patient reports: new complaints, no loss of fluid, no vaginal bleeding, no contractions Objective - Vital Signs Vital Signs: Vital Signs - 12hr 03/02/18 03/02/18 00:50 05:00 Temperature 98.7 F 98.5 F Pulse Rate 83 90 Respiratory 16 18 Rate Blood Pressure 100/54 101/60 [Left] - Exam Abdomen: Present: normal appearance, soft. Absent: distention, tenderness, guarding, rigidity - Labs Labs: Abnormal Labs 03/01/18 03/02/18 15:24 04:02 Sodium 132 L D Potassium 3.0 L 3.1 L Chloride 91.3 L Carbon Dioxide 19 L Creatinine 0.6 L Glucose 218 H Laboratory Results - last 24 hr 03/01/18 03/01/18 03/02/18 15:24 Unknown 04:02 Sodium 132 L D Potassium 3.0 L 3.1 L Chloride 91.3 L Carbon Dioxide 19 L Anion Gap 25 BUN 7 Creatinine 0.6 L Estimated GFR > 60 BUN/Creatinine Ratio 12 Glucose 218 H Calcium 8.8 Urine Color Yellow Urine Turbidity Clear Urine pH 7.0 Ur Specific [place] 1.006 Urine Protein <15 mg/dl Urine Glucose (UA) Neg Urine Ketones 20 Urine Blood Sm Urine Nitrite Neg Urine Bilirubin Neg Urine Urobilinogen < 2.0 Ur Leukocyte Esterase Neg Urine WBC (Auto) < 1.0 Urine RBC (Auto) 1.0 U Epithel Cells (Auto) 1.0 Urine Bacteria (Auto) 1+
[2018-03-02] MEDS ORDERED: KCL IV SCH (09:00)
[2018-03-02] MEDS ORDERED: D5LR IV ONE (09:00)
[2018-03-02] MEDS ORDERED: D5LR IV SCH (09:00)
[2018-03-02] MEDS ORDERED: INFUVITE IV ONE (09:00)
[2018-03-02] MEDS ORDERED: INFUVITE IV SCH (09:00)
[2018-03-02] MEDS ORDERED: KCL IV ONE (09:00)
[2018-03-02] MEDS: PEPCID PO SCH ×2 (09:58→21:57)
[2018-03-02] MEDS: ZOFRAN ODT PO SCH ×2 (09:58→19:30)
[2018-03-02] MEDS ORDERED: PRENATAL VITAMIN PO SCH (10:00)
[2018-03-02] MEDS ORDERED: MOTRIN PO PRN (12:54)
[2018-03-02] MEDS ORDERED: TYLENOL PO PRN (13:03)
[2018-03-03] MEDS: PHENERGAN PR SCH ×2 (03:36→03:37)
[2018-03-03] MEDS: ZOFRAN ODT PO SCH (03:36)
--- NOTE | 2018-03-03 06:49 | Event Note ---
Date: 03/03/18 Patient has had no episode of nausea vomiting since admission. Will discharge home at this time
--- NOTE | 2018-03-03 06:52 | Discharge Summary ---
Providers - Providers Date of Admission: 03/01/18 12:37 Date of discharge: 03/03/18 Attending physician: RITU PEARSON MD 03/01/18 13:40 Consult to Dietitian/Nutrition [CONS] Routine Physician Instructions: Reason For Exam: Reason for Consult: hyper grav Reason for Consult: Poor oral intake Primary care physician: RITU PEARSON MD Hospitalization Reason for admission: observation Discharge diagnosis: other (IUP at ~ 11 weeks with nausea vomiting of ) Hospital course: Pt is a 32 yo BF , LMP 12/11/2017, AMINAH 09/17/2018 EGA 11 weeks 3 days gestation sent from [facility] office for direct admit due to recurrent Hyperemesis. She was recently discharged from [facility] for hyperemesis 02/26/18. On the floor, patient's IV antiemetics and fluids restarted. She had no episodes of nausea vomiting. All IV medications were stopped and oral medications started. Was observed for 24 hours and had no nausea vomiting. She is discharged home Condition at discharge: Good Disposition: DC-01 TO HOME OR SELFCARE - Discharge Diagnoses (1) 11 weeks gestation of Status: Acute (2) Nausea/vomiting in Status: Acute Plan - Discharge Medications Prescriptions: Famotidine [Pepcid] 20 mg PO BID #60 tablet Ondansetron [Zofran ODT TAB] 8 mg PO Q8HR #90 tab.rapdis - Provider Discharge Summary Activity: no sex for 6 weeks, no heavy lifting 4 weeks, no strenuous exercise Diet: other (as per nutrition) Additional instructions: [] Smoking cessation referral if applicable(refer to patient education folder for contact #) [] Refer to [facility] Booklet Call your doctor immediately for: * Fever > 100.5 * Heavy vaginal bleeding ( >1 pad per hour) * Severe persistent headache * Shortness of breath * Reddened, hot, painful area to leg or breast * Drainage or odor from incision. * Keep incision clean and dry at all times and follow doctor's instructions regarding bathing/showering - Follow up plan Follow up: RITU PEARSON MD [Primary Care Provider] - 7 Days
[2018-03-03 07:59] VITALS: BP 97/64
== END 2018-03-03 09:50 | disposition home or self-care (01) | DRG 781 ==
LOC: UNDOADMIN 12:09 → 3A 12:09 → OB 12:37
PROVIDERS: ADMIT Obstetrics & Gynecology; ATTEND Obstetrics & Gynecology
DX: O21.0 Mild hyperemesis gravidarum (principal); Z3A.11 11 weeks gestation of pregnancy; Z83.3 Family history of diabetes mellitus; Z82.49 Family history of ischemic heart disease and other diseases of the circulatory system
CPT/HCPCS: 36415; 80048; 81001; 84132; J2405; J2765; J3480; J7121; Q0162

== ENCOUNTER 2018-12-22 06:31 | Day surgery (SDC) | payer OTHER, MEDICAID ==
[~2018-12-22 06:31] MED LIST: LACTATED RINGERS 1,000 ML IV SCH; NEURONTIN PO NR; VERSED IV NR
[2018-12-22] MEDS ORDERED: MARCAINE 0.5% INFILTRATI ONE ×3 (06:57→08:39)
--- NOTE | 2018-12-22 07:15 | Anesthesia Consultation ---
Anesthesia Consult and Med Hx Date of service: 12/22/18 - Airway Anesthetic Teeth Evaluation: Good ROM Head & Neck: Adequate Mental/Hyoid Distance: Adequate Mallampati Class: Class II Intubation Access Assessment: Probably Good - Pre-Operative Health Status ASA Pre-Surgery Classification: ASA1 Proposed Anesthetic Plan: General - Pulmonary Hx Smoking: No Hx Asthma: No COPD: No Hx Pneumonia: No Hx Sleep Apnea: No - Cardiovascular System Hx Hypertension: No Hx Heart Attack/AMI: No - Central Nervous System Hx Seizures: No Hx Psychiatric Problems: No - Endocrine Hx Renal Disease: No Hx End Stage Renal Disease: No Hx Hypothyroidism: No Hx Hyperthyroidism: No - Hematic Hx Sickle Cell Disease: No - Other Systems Hx Cancer: No
--- NOTE | 2018-12-22 07:16 | Anesthesia Day of Surgery ---
Anesthesia Day of Surgery - Day of Surgery Patient Examined: Yes Patient H&P Reviewed: Yes Patient is NPO: Yes
[2018-12-22] MEDS ORDERED: XYLOCAINE MPF 2% ONE (07:28)
[2018-12-22] MEDS ORDERED: DECADRON ONE (07:28)
[2018-12-22] MEDS ORDERED: BLOXIVERZ ONE (07:28)
[2018-12-22] MEDS ORDERED: ROBINUL ONE (07:28)
[2018-12-22] MEDS ORDERED: ZEMURON IV ONE (07:28)
[2018-12-22] MEDS ORDERED: ZOFRAN ONE (07:28)
[2018-12-22] MEDS ORDERED: SUBLIMAZE ONE (07:33)
[2018-12-22] MEDS ORDERED: DIPRIVAN 10 MG/ML IV ONE (07:33)
[2018-12-22] MEDS ORDERED: DILAUDID IV PRN (08:51)
[2018-12-22] MEDS ORDERED: BREVIBLOC IV ONE (09:24)
[2018-12-22 12:07] VITALS: BP 104/73
--- NOTE | 2018-12-22 13:27 | Post Anesthesia Evaluation ---
- Post Anesthesia Evaluation Patient Participated: Yes Airway Patent: Yes Stable Respiratory Function: Yes Nausea/Vomiting: No Temp > 96.8F: Yes Pain Manageable: Yes Adequeate Hydration: Yes Anesthesia Complications: No
--- NOTE | 2018-12-22 13:41 | Operative Report ---
Operative Report Operative Report: reoperative diagnosis: Multiparity, desires permanent sterilization. Postoperative diagnosis: Same as preoperative diagnosis. Procedure: Laparoscopic tubal ligation. Surgeon: Dr. Duckworth Sexual Assault Nurse: none Anesthesia: general EBL: negligible IVF: RL 1 liter Complications: none Intraoperative findings: Normal uterus, fallopian tubes and ovaries bilaterally. Procedure details: Risks, benefits, and alternatives of the procedure were discussed in detail with the patient which included but not limited to risk of infection, hemorrhage requiring blood transfusion, injury to the bowel or bladder and blood vessels, failure of the tubal ligation to prevent which can result in unwanted pregnancies in the future. The patient expressed understanding, her questions were answered, and she gave informed consent. The patient was taken to the operating room with an IV fluid using Ringer's lactate. In the operating room, she was placed in a dorsal supine position and given general anesthesia. She was then placed on the stirrups in a dorsal lithotomy position. The perineum, vagina, cervix, and abdomen were washed and she was prepared and draped in usual sterile fashion. The bladder was drained with straight catheter. EUA revealed normal external genitalia and vagina. The cervix was closed, long, posterior, The uterus was 8-week size, anteverted, mobile. The adnexae were nonpalpable. A bivalve speculum was placed in the vagina and the anterior lip of the cervix was grasped with a single-tooth tenaculum. A HUMI uterine manipulator was advanced into the uterine cavity to provide a means of manipulating the uterus and the procedure. The speculum and tenaculum were then removed. Attention was then turned to the patient's abdomen where a 5 mm skin incision was made in the infraumbilical fold. The Veress needle was introduced into the peritoneal cavity while tenting the abdominal wall. Intraperitoneal placement was confirmed by using a water-filled syringe and by noticing a drop in the intra-abdominal pressure with CO2 gas insufflation. The trocar and sleeves were then advanced without difficulty into the abdomen where intraperitoneal placement was confirmed using laparoscope. Pneumoperitoneum was achieved with 3.5 L of CO2 gas. A second 5 mm skin incision was made in the left lower quadrant and a 5 mm trocar and sleeves were then advanced into the abdominal cavity under direct visualization with the laparoscope. A quick survey of the anatomy revealed a normal uterus, fallopian tubes, and ovaries bilaterally. The left fallopian tube was grasped with bipolar forceps, cauterized at 2 locations, and transected . A similar procedure was done with the right fallopian tube which was cauterized and transected in a similar fashion. Good hemostasis was confirmed. The ports were then opened to release to CO2 gas from the abdomen. The instruments were then removed. The ports were closed with 3.0 vicryl sutures. Steri-Strip and Tegaderm were placed. The HUMI uterine manipulator was then removed from the uterine cavity. The counts of laps, needles, sponges, and instruments were correct 2. The patient tolerated the procedure well. She was awakened from anesthesia and taken to the recovery room in a stable condition.
== END 2018-12-22 12:35 | disposition home or self-care (01) ==
LOC: OR 06:31
PROVIDERS: ATTEND Obstetrics & Gynecology
DX: Z30.2 Encounter for sterilization (principal); Z98.891 History of uterine scar from previous surgery; Z83.3 Family history of diabetes mellitus; Z98.890 Other specified postprocedural states; Z82.49 Family history of ischemic heart disease and other diseases of the circulatory system
CPT/HCPCS: 58670; 81025; J1100; J1170; J2250; J2405; J2704; J2710; J3010; J7120

== ENCOUNTER 2021-06-15 20:53 | Emergency (ER) | payer MEDICAID, OTHER ==
[2021-06-15] MEDS ORDERED: SODIUM CHLORIDE 0.9% 1000 ML 1,000 ML IV ONE (22:11)
[2021-06-15] MEDS ORDERED: ONDANSETRON 4 MG/2 ML INJ IV ONE (22:11)
[2021-06-15] MEDS ORDERED: MORPHINE 4 MG/1 ML INJ IV ONE (22:11)
--- NOTE | 2021-06-15 22:16 | Emergency Department Report ---
HPI - General Chief Complaint: Abdominal Pain PUI?: No Time Seen by Provider: 06/15/21 22:10 - HPI HPI: This is a 35-year-old female presents to the emergency department with a complaint of right-sided and upper abdominal pain, nausea with vomiting, and diarrhea, that started earlier today. Currently she says that her abdominal pain is 9 out of 10 in intensity. No known aggravating or alleviating factors. The patient is vaccinated against COVID-19. No past medical history. Only surgical history is previous C-sections. She has not taken anything for symptoms prior to presentation today. ED Past Medical Hx - Past Medical History Previous Medical History?: Yes Hx Hypertension: No Hx Heart Attack/AMI: No Hx Congestive Heart Failure: No Hx Diabetes: No Hx Deep Vein Thrombosis: No Hx Renal Disease: No Hx Sickle Cell Disease: No Hx Headaches / Migraines: Yes Hx Seizures: No Hx Asthma: No Hx COPD: No Hx HIV: No - Surgical History Past Surgical History?: Yes Hx Open Heart Surgery: No Hx Cholecystectomy: No Hx Breast Surgery: No Additional Surgical History: X 2 - Social History Smoking Status: Never Smoker Substance Use Type: None - Medications Home Medications: Home Medications Medication Instructions Recorded Confirmed Last Taken Type Omeprazole 20 mg PO QDAY #20 capsule. 06/16/21 Unknown Rx Ondansetron [Zofran Odt] 4 mg PO Q8HR PRN #15 tab.eugenia 06/16/21 Unknown Rx ED Review of Systems ROS: Stated complaint: STOMACH PAIN Other details as noted in HPI Comment: All other systems reviewed and negative Constitutional: denies: chills, fever Eyes: denies: eye pain, vision change ENT: denies: ear pain, throat pain Respiratory: denies: cough, shortness of breath Cardiovascular: denies: chest pain, palpitations Gastrointestinal: abdominal pain, nausea, vomiting, diarrhea Genitourinary: denies: dysuria, discharge Musculoskeletal: denies: back pain, arthralgia Skin: denies: rash, lesions Neurological: denies: headache, weakness Physical Exam - Physical Exam Vital Signs: Vital Signs 06/15/21 21:56 Temperature 98.8 F Pulse Rate 93 H Respiratory 16 Rate Blood Pressure 97/64 O2 Sat by Pulse 100 Oximetry Physical Exam: GENERAL: The patient is well-developed well-nourished. HENT: Normocephalic. Atraumatic. Patient has moist mucous membranes. EYES: Extraocular motions are intact. NECK: Supple. Trachea is midline. CHEST/LUNGS: Clear to auscultation. There is no respiratory distress noted. HEART/CARDIOVASCULAR: Regular. There is mild tachycardia. There is no murmur. ABDOMEN: Abdomen is soft. Right-sided and upper abdominal tenderness to palpation. No guarding. Patient has normal bowel sounds. There is no abdominal distention. SKIN: Skin is warm and dry. NEURO: The patient is awake, alert, and oriented. The patient is cooperative. Normal speech. MUSCULOSKELETAL: There is no tenderness or deformity. There is no limitation range of motion. ED Course Vital Signs 06/15/21 21:56 Temperature 98.8 F Pulse Rate 93 H Respiratory 16 Rate Blood Pressure 97/64 O2 Sat by Pulse 100 Oximetry ED Medical Decision Making - Lab Data Result diagrams: 06/15/21 22:35 06/16/21 03:17 Lab Results 06/15/21 06/15/21 06/15/21 Range/Units 22:35 22:35 22:35 WBC 12.7 H (4.5-11.0) K/mm3 RBC 4.09 (3.65-5.03) M/mm3 Hgb 10.0 L (10.1-14.3) gm/dl Hct 30.4 (30.3-42.9) % MCV 74 L (79-97) fl MCH 24 L (28-32) pg MCHC 33 (30-34) % RDW 17.2 H (13.2-15.2) % Plt Count 328 (140-440) K/mm3 Lymph % (Auto) 10.5 L (13.4-35.0) % [place] % (Auto) 7.5 H (0.0-7.3) % Eos % (Auto) 0.5 (0.0-4.3) % Baso % (Auto) 0.1 (0.0-1.8) % Lymph # (Auto) 1.3 (1.2-5.4) K/mm3 [place]ain # (Auto) 1.0 H (0.0-0.8) K/mm3 Eos # (Auto) 0.1 (0.0-0.4) K/mm3 Baso # (Auto) 0.0 (0.0-0.1) K/mm3 Seg Neutrophils % 81.4 H (40.0-70.0) % Seg Neutrophils # 10.4 H (1.8-7.7) K/mm3 Sodium 138 (137-145) mmol/L Potassium 2.7 L* (3.6-5.0) mmol/L Chloride 104.4 (98-107) mmol/L Carbon Dioxide 22 (22-30) mmol/L Anion Gap 14 mmol/L BUN 14 (7-17) mg/dL Creatinine 0.8 (0.6-1.2) mg/dL Estimated GFR > 60 ml/min BUN/Creatinine Ratio 18 % Glucose 116 H (65-100) mg/dL Calcium 8.4 (8.4-10.2) mg/dL Total Bilirubin 0.20 (0.1-1.2) mg/dL Direct Bilirubin < 0.2 (0-0.2) mg/dL Indirect Bilirubin 0.0 mg/dL AST 40 (5-40) units/L ALT 36 (7-56) units/L Alkaline Phosphatase 108 (35-129) units/L Total Protein 7.9 (6.3-8.2) g/dL Albumin 4.1 (3.9-5) g/dL Albumin/Globulin Ratio 1.1 % Lipase 29 (13-60) units/L HCG, Qual Negative (Negative) 06/16/21 Range/Units 03:17 WBC (4.5-11.0) K/mm3 RBC (3.65-5.03) M/mm3 Hgb (10.1-14.3) gm/dl Hct (30.3-42.9) % MCV (79-97) fl MCH (28-32) pg MCHC (30-34) % RDW (13.2-15.2) % Plt Count (140-440) K/mm3 Lymph % (Auto) (13.4-35.0) % [place] % (Auto) (0.0-7.3) % Eos % (Auto) (0.0-4.3) % Baso % (Auto) (0.0-1.8) % Lymph # (Auto) (1.2-5.4) K/mm3 [place]ain # (Auto) (0.0-0.8) K/mm3 Eos # (Auto) (0.0-0.4) K/mm3 Baso # (Auto) (0.0-0.1) K/mm3 Seg Neutrophils % (40.0-70.0) % Seg Neutrophils # (1.8-7.7) K/mm3 Sodium (137-145) mmol/L Potassium 3.9 D (3.6-5.0) mmol/L Chloride (98-107) mmol/L Carbon Dioxide (22-30) mmol/L Anion Gap mmol/L BUN (7-17) mg/dL Creatinine (0.6-1.2) mg/dL Estimated GFR ml/min BUN/Creatinine Ratio % Glucose (65-100) mg/dL Calcium (8.4-10.2) mg/dL Total Bilirubin (0.1-1.2) mg/dL Direct Bilirubin (0-0.2) mg/dL Indirect Bilirubin mg/dL AST (5-40) units/L ALT (7-56) units/L Alkaline Phosphatase (35-129) units/L Total Protein (6.3-8.2) g/dL Albumin (3.9-5) g/dL Albumin/Globulin Ratio % Lipase (13-60) units/L HCG, Qual (Negative) - Radiology Data Radiology results: report reviewed, image reviewed interpreted by me: Chest x-ray does not show any acute process. There are no pleural effusions, obvious pneumonia and there is no pneumothorax. No widened mediastinum. Abdominal x-ray shows nonspecific nonobstructive bowel gas. There are some air- fluid levels. No free air. CT abdomen pelvis w con INDICATION / CLINICAL INFORMATION: Abdominal Pain. TECHNIQUE: Axial CT images were obtained through the abdomen and pelvis after 100 cc of Omnipaque [address] scans at this location are performed using CT dose reduction for ALARA by means of automated exposure control. COMPARISON: None available. FINDINGS: LOWER CHEST: No significant abnormality LIVER: No significant abnormality GALLBLADDER/BILIARY TREE: No significant abnormality PANCREAS: No significant abnormality SPLEEN: No significant abnormality ADRENALS: No significant abnormality KIDNEYS / URETER: Bilateral renal cysts. Kidneys enhance medically. No hydronephrosis. URINARY BLADDER: Bladder is partially decompressed, though grossly unremarkable. REPRODUCTIVE ORGANS: Endometrial fluid/thickening is likely physiologic. There is a 4 cm right adnexal cyst without associated inflammatory stranding or adjacent fluid. STOMACH / BOWEL: Mild diffuse mural thickening of the stomach. Small bowel is normal in caliber. Colon is unremarkable. The appendix is normal in caliber. LYMPH NODES: No significant adenopathy. VASCULATURE: No significant abnormality. OTHER: No free air, free fluid, or focal fluid collection is identified. SKELETAL SYSTEM: No acute osseous findings. IMPRESSION: 1. Mild diffuse mural thickening of the stomach, may be related to incomplete distention or could reflect mild gastritis. 2. Otherwise, no acute abnormality of the abdomen or pelvis. 3. 4 cm right adnexal cyst. This is most certainly benign. No further follow-up is required. - Medical Decision Making This patient presents with acute abdominal pain, nausea, vomiting and diarrhea. There is some reproducible abdominal tenderness to palpation. The abdomen is soft, nondistended. Labs have been mostly unremarkable except for hypokalemia with a potassium level of 2.7. This is most likely from the patient's vomiting and diarrhea. She has been given IV analgesia, IV antiemetics, and both oral and IV potassium supplementation, as well as some IV fluid resuscitation. Abdominal x-ray shows nonspecific nonobstructive bowel gas. CT scan of the abdomen and pelvis with IV contrast shows some gastritis, but otherwise no acute process. Repeat potassium level has gone up to 3.9. Vital signs reassuring throughout her ED course including being afebrile. The patient is able to pass an oral challenge. She will be discharged home with a PPI, antiemetics, and an outpatient referral for gastroenterology. Critical Care Time: No Critical care attestation.: If time is entered above; I have spent that time in minutes in the direct care of this critically ill patient, excluding procedure time. ED Disposition Clinical Impression: Hypokalemia Gastritis Qualifiers: Gastritis type: unspecified gastritis Chronicity: acute Gastritis bleeding: without bleeding Qualified Code(s): K29.00 - Acute gastritis without bleeding Abdominal pain Qualifiers: Abdominal location: unspecified location Qualified Code(s): R10.9 - Unspecified abdominal pain Nausea & vomiting Qualifiers: Vomiting type: unspecified Vomiting Intractability: non-intractable Qualified Code(s): R11.2 - Nausea with vomiting, unspecified Disposition: 01 HOME / SELF CARE / HOMELESS Is pt being admited?: No Condition: Stable Instructions: Abdominal Pain, Adult, Gastritis, Adult, Nausea and Vomiting, Adult, Potassium Content of Foods, Abdominal Pain (ED) Additional Instructions: Please follow-up with a primary care physician in the next few days. You will need a repeat potassium level done. I have given you a list of potassium rich foods. I have also given you a referral for [place] [facility] to follow-up regarding your abdominal pain and gastritis. Take all medications as prescribed. Return to the emergency department with any worsening of your symptoms, new or concerning symptoms not addressed during this current emergency department visit, or with any acute distress. Prescriptions: Omeprazole 20 mg PO QDAY #20 capsule. Ondansetron [Zofran Odt] 4 mg PO Q8HR PRN #15 tab.rapdis PRN Reason: Nausea Referrals: [facility] [Provider Group] - 2-3 Days Time of Disposition: 02:49
[2021-06-15 22:50] LABS: Basophils % (Auto) 0.1 % (0.0-1.8); Eosinophils # (Auto) 0.1 K/mm3 (0.0-0.4); Eosinophils % (Auto) 0.5 % (0.0-4.3); Hematocrit 30.4 % (30.3-42.9); Lymphocytes # (Auto) 1.3 K/mm3 (1.2-5.4); Lymphocytes % (Auto) 10.5 % (13.4-35.0); Mean Corpuscular HGB Conc 33 % (30-34); Mean Corpuscular Volume 74 fl (79-97); Monocytes % (Auto) 7.5 % (0.0-7.3); Platelet Count 328 K/mm3 (140-440); Red Blood Count 4.09 M/mm3 (3.65-5.03); Red Cell Distribution Width 17.2 % (13.2-15.2)
[2021-06-15 23:13] LABS: Alanine Aminotransferase 36 units/L (7-56); Albumin 4.1 g/dL (3.9-5); BUN/Creatinine Ratio 18; Blood Urea Nitrogen 14 mg/dL (7-17); Calcium 8.4 mg/dL (8.4-10.2); Hemolysis Index 0
[2021-06-15 23:23] LABS: Bilirubin,Direct < 0.2 mg/dL (0-0.2)
[2021-06-15] MEDS ORDERED: POTASSIUM CHLORIDE ER 20 MEQ TAB PO ONE (23:32)
--- NOTE | 2021-06-15 23:56 | XRay Report ---
XR abd series w cxr 1V INDICATION / CLINICAL INFORMATION: Abd pain. COMPARISON: None available. FINDINGS: Lungs are clear. No pleural effusion or pneumothorax. Heart size is normal. Bowel gas pattern is nonobstructive. No free air or suspicious calcifications. No acute osseous findings. IMPRESSION: 1.No acute process. Signer Name: Jeremias Xiong MD Signed: 06/15/2021 11:51 PM Workstation Name: [id number]
[2021-06-16] MEDS: POTASSIUM CHLORIDE 10 MEQ 10 MEQ/100 ML BAG IV SCH ×2 (00:43→01:46)
--- NOTE | 2021-06-16 00:55 | Cat Scan Report ---
CT abdomen pelvis w con INDICATION / CLINICAL INFORMATION: Abdominal Pain. TECHNIQUE: Axial CT images were obtained through the abdomen and pelvis after 100 cc of Omnipaque [address] scans at this location are performed using CT dose reduction for ALARA by means of automated exposure control. COMPARISON: None available. FINDINGS: LOWER CHEST: No significant abnormality LIVER: No significant abnormality GALLBLADDER/BILIARY TREE: No significant abnormality PANCREAS: No significant abnormality SPLEEN: No significant abnormality ADRENALS: No significant abnormality KIDNEYS / URETER: Bilateral renal cysts. Kidneys enhance medically. No hydronephrosis. URINARY BLADDER: Bladder is partially decompressed, though grossly unremarkable. REPRODUCTIVE ORGANS: Endometrial fluid/thickening is likely physiologic. There is a 4 cm right adnexa l cyst without associated inflammatory stranding or adjacent fluid. STOMACH / BOWEL: Mild diffuse mural thickening of the stomach. Small bowel is normal in caliber. [place] n is unremarkable. The appendix is normal in caliber. LYMPH NODES: No significant adenopathy. VASCULATURE: No significant abnormality. OTHER: No free air, free fluid, or focal fluid collection is identified. SKELETAL SYSTEM: No acute osseous findings. IMPRESSION: 1. Mild diffuse mural thickening of the stomach, may be related to incomplete distention or could ref lect mild gastritis. 2. Otherwise, no acute abnormality of the abdomen or pelvis. 3. 4 cm right adnexal cyst. This is most certainly benign. No further follow-up is required. Signer Name: Jeremias Xiong MD Signed: 06/16/2021 12:51 AM Workstation Name: [id number]
[2021-06-16] MEDS ORDERED: ONDANSETRON 4 MG/2 ML INJ IV ONE (01:12)
[2021-06-16 04:50] VITALS: BP 101/57
== END 2021-06-16 06:26 | disposition home or self-care (01) ==
LOC: ED 20:53
DX: E87.6 Hypokalemia (principal); K29.70 Gastritis, unspecified, without bleeding; R10.9 Unspecified abdominal pain; R11.2 Nausea with vomiting, unspecified
CPT/HCPCS: 36415; 74022; 74177; 80048; 80076; 83690; 84132; 84703; 85025; 96361; 96365; 96366; 96375; 96376; 99284; J2270; J2405; J3480; J7030; Q9967